=== PATIENT | female | born 1970 | race Caucasian/White ===

== ENCOUNTER 2017-03-29 08:52 | Inpatient (IN) | payer OTHER ==
[~2017-03-29] VITALS: Ht 165.1 cm; Wt 160.0 kg
[~2017-03-29 08:52] MED LIST: ALEVE220 MG PO; MICROGESTIN FE1 EACH PO; PANTOPRAZOLE SO40 MG PO
[2017-03-29 10:26] VITALS: BP 140/75
[2017-03-29 10:38] LABS: POINT-OF-CARE METER ID UU14174212
[2017-03-29 18:43] LABS: POINT-OF-CARE USER ID 515036437
[2017-03-29 18:53] VITALS: BP 185/84
[2017-03-29 23:47] VITALS: BP 135/78
[2017-03-30 00:26] LABS: POINT-OF-CARE METER ID UU14162508
[2017-03-30 03:54] VITALS: BP 156/74
[2017-03-30 06:40] LABS: POINT-OF-CARE METER ID UU14162508
[2017-03-30 07:02] VITALS: BP 121/58
[2017-03-30 07:12] LABS: HEMATOCRIT 38.2 % (36.0-46.0); MCH 29.5 PG (29.0-34.0); MCHC 32.5 G/DL (30.0-36.0); MCV 90.7 FL (83-99); MEAN PLAT.VOLUME 11.6 uM^3 (9.5-12.4); PLATELET COUNT 242 K/uL (156-360); RBC DIS.WIDTH-CV 13.4 % (11.8-14.6); RBC DIS.WIDTH-SD 44.7 % (39-53); RED BLOOD COUNT 4.21 M/uL (3.80-5.20); WHITE BLOOD COUNT 9.8 K/uL (4.1-10.2)
[2017-03-30 07:33] LABS: ANION GAP 10 MEQ/L (2-14); CHLORIDE 100 MEQ/L (99-109); GFR ESTIMATE (CALCULATED) > 59 mL/min/; GLUCOSE 112 mg/dL (70-99); MAGNESIUM 1.7 mg/dl (1.3-2.7); SAMPLE HEMOLYSIS CHECK 0; SAMPLE ICTERIC CHECK 0; SAMPLE LIPEMIA CHECK 0; SODIUM 135 MEQ/L (136-147); UREA NITROGEN (BUN) 7 mg/dL (9-23)
[2017-03-30] MEDS ORDERED: HYDROCODON-ACE1 EAC7 PO (08:20)
== END 2017-03-30 13:05 | disposition home or self-care (01) | DRG 621 ==
LOC: 2SOUTH 08:52 → 2EAST 18:32
PROVIDERS: Surgery
PROC: 0DB64Z3 Excision of Stomach, Percutaneous Endoscopic Approach, Vertical (ICD-10-PCS; principal; 2017-03-29)
DX: E66.01 Morbid (severe) obesity due to excess calories (principal); Z68.43 Body mass index [BMI] 50.0-59.9, adult; L40.9 Psoriasis, unspecified
CPT/HCPCS: 80048; 82948; 83735; 84100; 85027; C9113; J0131; J0330; J0690; J1100; J1170; J1644; J1650; J1815; J2270; J2405; J2710; J2765; J3010; J3480; J7120; S0020